=== PATIENT | female | born 1925 | race Caucasian/White ===

== ENCOUNTER 2016-07-15 14:47 | Emergency (ER) | payer MEDICARE, OTHER ==
[~2016-07-15] VITALS: Ht 157.5 cm; Wt 77.1 kg
[~2016-07-15 14:47] MED LIST: BISM262T18 PO; LACT1CAP69 PO; ONDA-25 PO
[2016-07-15] MEDS ORDERED: IV NORMAL SALINE 500 ML BAG IV ONE (15:15)
[2016-07-15 15:32] LABS: BASOPHILS # (AUTO) 0.1 K/uL (0.0-8.0); BASOPHILS % (AUTO) 1.4 % (0.0-2.0); EOSINOPHILS # (AUTO) 0.2 K/uL (0.0-0.7); EOSINOPHILS % (AUTO) 2.7 % (0.0-7.0); HEMATOCRIT 31.8 % (31.2-41.9); HEMOGLOBIN 10.6 g/dL (10.9-14.3); LYMPHOCYTES # (AUTO) 1.6 K/uL (20.0-40.0); LYMPHOCYTES % (AUTO) 17.3 % (20.5-51.5); MEAN CORPUSCULAR HEMOGLOBIN 29.7 uug (24.7-32.8); MEAN CORPUSCULAR HGB CONC 34 g/dL (32.3-35.6); MEAN CORPUSCULAR VOLUME 88.6 fL (75.5-95.3); NEUTROPHILS # (AUTO) 6.2 K/uL (1.8-8.9); NEUTROPHILS % (AUTO) 67.6 % (38.5-71.5); PLATELET COUNT (AUTO) 308 K/uL (179-408); RED BLOOD CELL COUNT(AUTO) 3.58 MIL/uL (3.63-4.92); RED CELL DISTRIBUTION WIDTH 14.7 % (12.3-17.7); WHITE BLOOD COUNT (AUTO) 9.1 K/uL (3.8-11.8)
[2016-07-15 15:36] LABS: CALCIUM 9.3 mg/dL (8.5-10.1); CREATININE 1.1 mg/dL (0.6-1.3); POTASSIUM 4.4 mmol/L (3.5-5.1)
[2016-07-15 15:41] LABS: ALBUMIN 3.2 g/dL (3.4-5.0); BILIRUBIN,DIRECT 0.1 mg/dL (0.0-0.2); BILIRUBIN,TOTAL 0.2 mg/dL (0.2-1.0); TOTAL PROTEIN, SERUM 7.1 g/dL (6.4-8.2)
--- NOTE | 2016-07-15 15:52 | NUR ---
Patient discharged to home in stable conditon. Written and verbal after care instructions given. Patient verbalizes understanding of instructions.PT SAYS FEELS BETTER, DENEIS ANY CP OR SOB. PT WITH FAMILY MEMBER.
[2016-07-15 15:53] VITALS: BP 169/90
== END 2016-07-15 15:57 | disposition home or self-care (01) ==
LOC: ER 14:51
DX: R07.89 Other chest pain (principal); K21.9 Gastro-esophageal reflux disease without esophagitis; F32.9 Major depressive disorder, single episode, unspecified; K58.9 Irritable bowel syndrome, unspecified; Z88.0 Allergy status to penicillin
CPT/HCPCS: 36415; 70030-TC; 71010; 85025; 85730; 93005; A4663; J7040

== ENCOUNTER 2017-04-16 16:18 | Inpatient (IN) | payer OTHER ==
[~2017-04-16] VITALS: Ht 160 cm; Wt 83.9 kg
[~2017-04-16 16:18] MED LIST changes: -ONDA-25 PO; +ONDA4TAB10 PO
--- NOTE | 2017-04-16 16:51 | NUR ---
PATIENT WAS SEEN BY MD FOR PEIOR COMPLAINT OF SOB. PATIENT IS AWAKE AND ALERT IN NO DISTRESS.
[2017-04-16] MEDS ORDERED: FURO40TA5 PO (16:58)
[2017-04-16] MEDS ORDERED: ESOM40CA PO (16:58)
[2017-04-16] MEDS ORDERED: SIMV40TA5 PO (16:58)
[2017-04-16] MEDS ORDERED: CLON0.5T4 PO (16:58)
[2017-04-16] MEDS ORDERED: ONDA4TAB10 PO (16:58)
[2017-04-16] MEDS ORDERED: TRAM50TA2 PO ×2 (16:58)
[2017-04-16] MEDS ORDERED: TEMA15CA PO (16:58)
[2017-04-16 17:01] LABS: BASOPHILS % (AUTO) 0.5 % (0.0-2.0); EOSINOPHILS # (AUTO) 0.1 K/uL (0.0-0.7); EOSINOPHILS % (AUTO) 1.1 % (0.0-7.0); HEMATOCRIT 32.4 % (31.2-41.9); HEMOGLOBIN 10.7 g/dL (10.9-14.3); LYMPHOCYTES # (AUTO) 1.8 K/uL (20.0-40.0); LYMPHOCYTES % (AUTO) 20.5 % (20.5-51.5); MEAN CORPUSCULAR HEMOGLOBIN 29.9 uug (24.7-32.8); MEAN CORPUSCULAR HGB CONC 33 g/dL (32.3-35.6); MEAN CORPUSCULAR VOLUME 90.2 fL (75.5-95.3); MONOCYTES # (AUTO) 0.8 K/uL (2.0-10.0); MONOCYTES % (AUTO) 9.1 % (0.0-11.0); NEUTROPHILS % (AUTO) 68.8 % (38.5-71.5); PLATELET COUNT (AUTO) 308 K/uL (179-408); RED BLOOD CELL COUNT(AUTO) 3.59 MIL/uL (3.63-4.92); WHITE BLOOD COUNT (AUTO) 8.7 K/uL (3.8-11.8)
[2017-04-16] MEDS ORDERED: LOPE2CAP40 PO (17:06)
[2017-04-16] MEDS ORDERED: MAG30ORA PO (17:06)
[2017-04-16] MEDS ORDERED: MAGN400O6 PO (17:06)
[2017-04-16] MEDS ORDERED: BISA10SU12 RC (17:06)
[2017-04-16] MEDS ORDERED: ACET325T53 PO (17:06)
[2017-04-16 17:07] LABS: CARBON DIOXIDE 28 mmol/L (21-32); CHLORIDE 101 mmol/L (98-107); CREATININE 1.3 mg/dL (0.6-1.3); GLUCOSE 99 mg/dL (74-106); POTASSIUM 4.3 mmol/L (3.5-5.1); UREA NITROGEN, BLOOD 18 mg/dL (7-18)
[2017-04-16 17:12] LABS: ALANINE AMINOTRANSFERASE 26 U/L (14-59); ALKALINE PHOSPHATASE 53 U/L (50-136); ASPARTATE AMINOTRANSFERASE 20 U/L (15-37); BILIRUBIN,DIRECT 0.1 mg/dL (0.0-0.2); BILIRUBIN,TOTAL 0.2 mg/dL (0.2-1.0)
--- NOTE | 2017-04-16 17:35 | NUR ---
PATIENT AMBULATED TO BATHROOM WITH A WALKER.
--- NOTE | 2017-04-16 18:26 | NUR ---
REPORT GIVEN TO HENRY MONTALVO. PT AWARE OF PENDING ADMISSION.
[2017-04-16 20:00] VITALS: BP 157/70
--- NOTE | 2017-04-16 20:30 | NUR ---
RECEIVED PT AWAKE IN BED, SHE'S ALERT AND ORIENTED X4 AND ABLE TO STATE HER NEEDS. SHE DENIES PAIN OR ANY DISCOMFORT, NO SOB AT PRESENT. INVENTORY AUDIT CLERK REPORTED BP OF 157/70 AND [place] 110, REASSESSED BP NOW AT 134/78, WITH [place] 90. ALL SAFETY MEASURES IN PLACE, CALL LIGHT WITHIN REACH. WILL CONTINUE TO MONITOR PT
[2017-04-16] MEDS ORDERED: CLONAZEPAM 0.5 MG TABLET PO PRN (21:45)
[2017-04-16] MEDS ORDERED: MAG HYDROX/AL HYDROX/SIMETH 30 ML LIQUID UDC PO PRN (21:45)
[2017-04-16] MEDS ORDERED: BISACODYL 10 MG SUPP.RECT RC PRN (21:45)
[2017-04-16] MEDS ORDERED: ACETAMINOPHEN 325 MG TABLET PO PRN ×2 (21:45)
[2017-04-16] MEDS ORDERED: TEMAZEPAM 15 MG CAPSULE PO PRN (21:45)
[2017-04-16] MEDS ORDERED: TRAMADOL HCL 50 MG TABLET PO PRN (21:45)
[2017-04-16] MEDS ORDERED: MIRALAX 17 GM POWD.PACK PO PRN (21:45)
[2017-04-16] MEDS ORDERED: ONDANSETRON 4 MG/2 ML VIAL IV PRN (21:45)
[2017-04-16] MEDS: TEMAZEPAM 15 MG CAPSULE PO PRN (22:06)
[2017-04-16] MEDS: TRAMADOL HCL 50 MG TABLET PO SCH (22:06)
[2017-04-16] MEDS ORDERED: TRAMADOL HCL 50 MG TABLET ONE (22:20)
[2017-04-16] MEDS ORDERED: TEMAZEPAM 15 MG CAPSULE ONE (22:21)
[2017-04-17] VITALS: BP 120/75
[2017-04-17 04:00] VITALS: BP 113/52
[2017-04-17 06:30] LABS: ALANINE AMINOTRANSFERASE 22 U/L (14-59); ALKALINE PHOSPHATASE 47 U/L (50-136); ASPARTATE AMINOTRANSFERASE 18 U/L (15-37); BILIRUBIN,TOTAL 0.3 mg/dL (0.2-1.0); CARBON DIOXIDE 28 mmol/L (21-32); CHLORIDE 105 mmol/L (98-107); CHOLESTEROL 128 mg/dL (<200); CREATININE 1.1 mg/dL (0.6-1.3); HDL CHOLESTEROL 78 mg/dL (40-60); MAGNESIUM 1.8 mg/dL (1.8-2.4); PHOSPHOROUS 3.7 mg/dL (2.5-4.9); POTASSIUM 3.7 mmol/L (3.5-5.1); TOTAL PROTEIN, SERUM 6.3 g/dL (6.4-8.2); TRIGLYCERIDES 82 MG/DL (30-150); UREA NITROGEN, BLOOD 14 mg/dL (7-18)
--- NOTE | 2017-04-17 06:35 | NUR ---
PT IS ASLEEP BUT EASILY AROUSABLE, SHE DENIES PAIN OR ANY DISCOMFORT. NO RESP DISTRESS NOTED AT PRESENT.SAFETY MEASURES IN PLACE, CALL LIGHT WITHIN PT'S REACH. ALL NEEDS WERE MET ON THIS SHIFT
[2017-04-17 06:37] LABS: GLUCOSE 92 mg/dL (74-106)
[2017-04-17 06:38] LABS: THYROID STIMULATING HORMONE 1.252 mIU/mL (0.358-3.740)
[2017-04-17 06:41] LABS: BASOPHILS # (AUTO) 0.1 K/uL (0.0-8.0); EOSINOPHILS # (AUTO) 0.2 K/uL (0.0-0.7); MONOCYTES # (AUTO) 0.8 K/uL (2.0-10.0); MONOCYTES % (AUTO) 12.1 % (0.0-11.0); NEUTROPHILS # (AUTO) 3.5 K/uL (1.8-8.9); WHITE BLOOD COUNT (AUTO) 6.4 K/uL (3.8-11.8)
[2017-04-17 06:54] LABS: BASOPHILS % (AUTO) 0.9 % (0.0-2.0); EOSINOPHILS % (AUTO) 3.1 % (0.0-7.0); HEMATOCRIT 30.7 % (31.2-41.9); LYMPHOCYTES # (AUTO) 1.8 K/uL (20.0-40.0); MEAN CORPUSCULAR HEMOGLOBIN 29.6 uug (24.7-32.8); MEAN CORPUSCULAR HGB CONC 33 g/dL (32.3-35.6); MEAN CORPUSCULAR VOLUME 90.8 fL (75.5-95.3); NEUTROPHILS % (AUTO) 54.9 % (38.5-71.5); PLATELET COUNT (AUTO) 281 K/uL (179-408); RED BLOOD CELL COUNT(AUTO) 3.39 MIL/uL (3.63-4.92)
[2017-04-17] MEDS: PANTOPRAZOLE SODIUM 40 MG TABLET.DR PO SCH (07:55)
[2017-04-17] MEDS: FUROSEMIDE 20 MG/2 ML VIAL IV SCH ×2 (08:00→20:49)
[2017-04-17 11:05] VITALS: BP 127/63
[2017-04-17 15:09] VITALS: BP 137/59
[2017-04-17 15:21] LABS: *BILIRUBIN,URIN NEGATIVE (NEGATIVE); *BLOOD, URINE NEGATIVE (NEGATIVE); *CLARITY,URINE CLEAR (CLEAR); *COLOR,URINE STRAW (YELLOW); *KETONES,URINE NEGATIVE (NEGATIVE); *PROTEIN,URINE NEGATIVE (NEGATIVE); *UROBILINOGEN,URINE 0.2 E.U./dl (NORMAL); LEUKOCYTE ESTERASE ,URINE TRACE (NEGATIVE); NITRITE, URINE NEGATIVE (NEGATIVE); UGLUCOSE NEGATIVE (NEGATIVE)
[2017-04-17 15:34] LABS: BACTERIA,URINE FEW /HPF (NONE SEEN); RBC,URINE 0-3 /HPF (0-3); SQUAMOUS EPITHELIAL CELL,UR FEW /HPF (NONE SEEN); WBC,URINE 0-3 /HPF (0-3)
--- NOTE | 2017-04-17 18:55 | NUR ---
pt is resting in be with no signs of respiratory distress, vitals stable, calm cooperative, medication compliant. eager to d/c. agreeable with care and allows care. continue to monitor pt.
[2017-04-17 20:00] VITALS: BP 118/67
--- NOTE | 2017-04-17 20:00 | NUR ---
PT IS AWAKE IN BED, SHE'S ALERT AND ORIENTED X3 AND ABLE TO STATE HER NEEDS. SHE DENIES PAIN OR DISCOMFORT, NO RESP DISTRESS NOTED. SAFETY MEASURES IN PLACE, CALL LIGHT PLACED WITHIN PT'S REACH. WILL CONTINUE TO MONITOR PT
[2017-04-17] MEDS: TRAMADOL HCL 50 MG TABLET PO SCH (20:49)
[2017-04-17] MEDS ORDERED: DOCUSATE SODIUM 100 MG CAPSULE PO SCH (21:00)
[2017-04-17] MEDS ORDERED: DOCUSATE SODIUM 250 MG CAPSULE PO SCH (21:00)
[2017-04-17] MEDS ORDERED: SIMVASTATIN 40 MG TABLET PO SCH (21:00)
[2017-04-17] MEDS: TEMAZEPAM 15 MG CAPSULE PO PRN (22:28)
[2017-04-18] VITALS: BP 111/60
[2017-04-18 04:00] VITALS: BP 120/73
[2017-04-18] MEDS: PANTOPRAZOLE SODIUM 40 MG TABLET.DR PO SCH (06:14)
[2017-04-18 06:37] LABS: BASOPHILS % (AUTO) 0.4 % (0.0-2.0); EOSINOPHILS # (AUTO) 0.2 K/uL (0.0-0.7); EOSINOPHILS % (AUTO) 2.9 % (0.0-7.0); HEMATOCRIT 35.2 % (31.2-41.9); HEMOGLOBIN 11.6 g/dL (10.9-14.3); LYMPHOCYTES # (AUTO) 1.9 K/uL (20.0-40.0); LYMPHOCYTES % (AUTO) 25.2 % (20.5-51.5); MEAN CORPUSCULAR HEMOGLOBIN 29.9 uug (24.7-32.8); MEAN CORPUSCULAR HGB CONC 33 g/dL (32.3-35.6); MEAN CORPUSCULAR VOLUME 90.7 fL (75.5-95.3); MONOCYTES # (AUTO) 0.9 K/uL (2.0-10.0); MONOCYTES % (AUTO) 11.7 % (0.0-11.0); NEUTROPHILS # (AUTO) 4.5 K/uL (1.8-8.9); NEUTROPHILS % (AUTO) 59.8 % (38.5-71.5); PLATELET COUNT (AUTO) 300 K/uL (179-408); RED BLOOD CELL COUNT(AUTO) 3.88 MIL/uL (3.63-4.92); WHITE BLOOD COUNT (AUTO) 7.5 K/uL (3.8-11.8)
--- NOTE | 2017-04-18 06:50 | NUR ---
PT IS ASLEEP WITH NO S/S OF PAIN OR DISTRESS, NO SOB AT PRESENT. SHE SLEPT WELL THROUGH THE NIGHT. ALL SAFETY MEASURES IN PLACE, CALL LIGHT PLACED WITHIN PT'S REACH. ALL NEEDS WERE MET ON THIS SHIFT
[2017-04-18 06:51] LABS: CARBON DIOXIDE 30 mmol/L (21-32); CHLORIDE 101 mmol/L (98-107); CREATININE 1.2 mg/dL (0.6-1.3); GLUCOSE 96 mg/dL (74-106); PHOSPHOROUS 4.2 mg/dL (2.5-4.9); POTASSIUM 3.7 mmol/L (3.5-5.1); UREA NITROGEN, BLOOD 16 mg/dL (7-18)
[2017-04-18 07:16] LABS: IRON, SERUM 56 ug/dL (50-175)
[2017-04-18] MEDS: FUROSEMIDE 20 MG/2 ML VIAL IV SCH ×2 (08:21→08:42)
--- NOTE | 2017-04-18 08:38 | NUR ---
IV LASIX DRAWN UP IN SYRINGE, EDUCATED PT ON MEDICATION, PT REFUSING AT THIS TIME. MEDICATION WASTED IN SHARPS CONTAINER
[2017-04-18 11:32] VITALS: BP 131/69
[2017-04-18] MEDS ORDERED: SIMV20TA6 PO (14:22)
[2017-04-18] MEDS ORDERED: ASPI-618 PO (14:22)
[2017-04-18 15:23] VITALS: BP 141/64
--- NOTE | 2017-04-18 16:53 | NUR ---
discharge noted, pt agreeable with plan of care. to follow up with primary MD. iv removed with no redness or irritation noted. all belongings accounted for and sent with pt. pt left via wheelchair in private car with daughter
== END 2017-04-18 16:45 | DRG 293 ==
LOC: ER 16:19 → TELE 18:29
PROVIDERS: ADMIT Internal Medicine; ATTEND Internal Medicine
DX: I11.0 Hypertensive heart disease with heart failure (principal); D64.9 Anemia, unspecified; J98.4 Other disorders of lung; J06.9 Acute upper respiratory infection, unspecified; I50.33 Acute on chronic diastolic (congestive) heart failure; E66.9 Obesity, unspecified; Z87.891 Personal history of nicotine dependence; Z68.32 Body mass index [BMI] 32.0-32.9, adult; Z79.899 Other long term (current) drug therapy; K58.0 Irritable bowel syndrome with diarrhea; K21.9 Gastro-esophageal reflux disease without esophagitis; E78.5 Hyperlipidemia, unspecified; F41.9 Anxiety disorder, unspecified; G89.29 Other chronic pain; M19.90 Unspecified osteoarthritis, unspecified site; I70.0 Atherosclerosis of aorta; Z90.49 Acquired absence of other specified parts of digestive tract
CPT/HCPCS: 36415; 70030-TC; 71045; 83550; 83735; 84100; 84443; 85025; 85730; 87086; 93005; 93307; 97116; 97530; A4663; J1940